=== PATIENT | male | born 1990 | race Caucasian/White ===

== ENCOUNTER 2017-04-20 11:13 | Emergency (ER) | payer MEDICAID ==
[2017-04-20 12:19] VITALS: BP 141/96
== END 2017-04-20 13:38 | disposition home or self-care (01) ==
LOC: ED 11:13
DX: B34.9 Viral infection, unspecified (principal); J20.9 Acute bronchitis, unspecified; R03.0 Elevated blood-pressure reading, without diagnosis of hypertension
CPT/HCPCS: J7613; J7644